=== PATIENT | female | born 1980 | race Caucasian/White ===

== ENCOUNTER 2024-04-26 13:47 | Inpatient (IN) | payer BC, OTHER ==
[2024-04-26] VITALS (8 sets, daily range): BP systolic 100–123; BP diastolic 53–84; PULSE 80–108; RESP 7–21; TEMP 97.9–101.1; O2SAT 93–100
[~2024-04-26] VITALS: Ht 160 cm; Wt 198.0 kg
[~2024-04-26 13:47] MED LIST: CYCL-1 PO
[2024-04-26 14:37] LABS: BILIRUBIN,URINE NEGATIVE (Neg); CLARITY,URINE SLIGHTLY CLOUDY (Clear); COLOR,URINE YELLOW (Yellow); GLUCOSE, URINE NEGATIVE (Neg); KETONES,URINE 40 mg/dl (Neg); LEUKOCYTE ESTERASE ,URINE MODERATE (Neg); NITRITES, URINE POSITIVE (Neg); OCCULT BLOOD,URINE SMALL (Neg); PROTEIN,URINE TRACE mg/dl (Neg); UROBILINOGEN,URINE 0.2 E.U/dL (0.2-1.0)
[2024-04-26 14:45] LABS: UA COLLECTION TYPE CLN CATCH MIDSTREAM
[2024-04-26 14:47] LABS: BACTERIA,URINE 4+ /HPF (Neg); SQUAMOUS EPITHELIAL CELL,UR MODERATE /LPF (FEW); WBC,URINE TNTC /HPF (0-4)
[2024-04-26 14:51] LABS: HEMOGLOBIN 13.1 g/dl (12.0-16.0); LYMPHOCYTES # (AUTO) 1.1 X10'3 (1.1-4.8); MEAN CORPUSCULAR VOLUME 87.1 FL (78-98); MEAN PLATELET VOLUME 7.5 FL (7.4-10.4); MONOCYTES # (AUTO) 0.9 X10'3 (0-0.9)
[2024-04-26 14:52] LABS: BASOPHILS # (AUTO) 0.1 X10'3 (0-0.2); BASOPHILS % (AUTO) 0.4 % (0-1); EOSINOPHILS % (AUTO) 0.1 % (0-6); HEMATOCRIT 39.1 % (35.0-45.0); LYMPHOCYTES % (AUTO) 7.4 % (21-51); MEAN CORPUSCULAR HEMOGLOBIN 29.2 PG (27.0-31.0); MEAN CORPUSCULAR HGB CONC 33.5 g/dL (33.0-36.5); NEUTROPHILS # (AUTO) 12.9 X10'3 (1.8-7.7); NEUTROPHILS % (AUTO) 86.1 % (42-75); PLATELET COUNT 326 X10'3 (140-440); RED BLOOD COUNT 4.49 X10'6 (4.20-5.60); RED CELL DISTRIBUTION WIDTH 13.2 % (11.5-14.5)
[2024-04-26 14:59] LABS: ALANINE AMINOTRANSFERASE 151 U/L (12-78); ALBUMIN 3.2 G/DL (3.4-5.0); ALBUMIN/GLOBULIN RATIO 0.8 (1.1-1.5); ALKALINE PHOSPHATASE 138 IU/L (46-116); ANION GAP 14 (8-16); ASPARTATE AMINO TRANSFERASE 114 U/L (10-37); BLOOD UREA NITROGEN 10 MG/DL (7-18); BUN/CREATININE RATIO 9.2 (10.0-20.0); CALCIUM 8.5 MG/DL (8.5-10.1); CHLORIDE 96 MMOL/L (99-107); CREATININE 1.09 MG/DL (0.40-0.90); GLUCOSE 123 MG/DL (70-104); LIPASE 39 U/L (16-77); POTASSIUM 3.5 MMOL/L (3.5-5.1); SODIUM 132 MMOL/L (135-145); TOTAL CARBON DIOXIDE 21.8 MMOL/L (24-32); TOTAL PROTEIN 7.2 G/DL (6.4-8.2); eCRCL 54 ML/MIN; eGFR 54 ML/MIN
[2024-04-26 16:23] LABS: HCG SERUM QL NEGATIVE
[2024-04-26] MEDS ORDERED: cefTAZidime 1 GM/NS 100ML IVPB 100 ML IV STA (16:29)
[2024-04-26] MEDS: CefTRIAXone/D5W-Rocephin 1gm 50 ML IV ONE (17:16)
[2024-04-26] MEDS: ketorolac trometh 15mg/ml vial 15 MG/ML ML IV ONE (17:17)
[2024-04-26] MEDS: ondansetron/PF 4mg/2ml inj IV ONE (17:17)
[2024-04-26] MEDS: normal saline 1000ml 1,000 ML IV ONE (17:17)
[2024-04-26] MEDS: piperacillin/tazo 4.5gm/100ml 100 ML IV STA (17:40)
[2024-04-26 17:57] LABS: C-REACTIVE PROTEIN 5.46 MG/DL (0.0-0.5)
[2024-04-26] MEDS ORDERED: mag hydrox/Alum hydrox/simeth 30ml oral suspension PO PRN (18:25)
[2024-04-26] MEDS ORDERED: potassium Cl 20 mEq SR tablet PO PRN (18:25)
[2024-04-26] MEDS ORDERED: ondansetron/PF 4mg/2ml inj IV PRN ×2 (18:25→18:40)
[2024-04-26] MEDS ORDERED: potassium Cl 40MEQ/1/2NS 520ml 520 ML IV PRN (18:25)
[2024-04-26] MEDS ORDERED: morphine 2 MG/ML inj. syringe IV PRN ×2 (18:25→18:40)
[2024-04-26] MEDS ORDERED: magnesium hydroxide 30ml (MOM) UD suspension PO PRN (18:25)
[2024-04-26] MEDS ORDERED: magnesium sulf-water 2g/50mL 50 ML IV PRN (18:25)
[2024-04-26] MEDS: normal saline 1000ml 1,000 ML IV SCH (18:25)
[2024-04-26] MEDS ORDERED: magnesium sulf-water 4G/100mL 100 ML IV PRN (18:25)
[2024-04-26] MEDS ORDERED: enalaprilat dihydrate 2.5mg/2ml vial IV PRN (18:40)
[2024-04-26] MEDS ORDERED: sevoflurane 250ml liquid IH ONE (18:40)
[2024-04-26] MEDS ORDERED: proCHLORperazine 10 MG/2 ml inj IV PRN (18:40)
[2024-04-26] MEDS ORDERED: meperidine/PF 25mg/ml syringe IV PRN ×2 (18:40)
[2024-04-26] MEDS ORDERED: labetalol 20mg/4ml (5mg/ml) syringe IV PRN (18:40)
[2024-04-26] MEDS ORDERED: morphine 4 MG/ML inj SYRINge IV PRN (18:40)
[2024-04-26] MEDS ORDERED: ringers solution, lacted 1,000 ML IV SCH (18:40)
[2024-04-26] MEDS ORDERED: fentaNYL/PF 50MCG/1 ML 2ML syringe ONE (18:49)
[2024-04-26] MEDS ORDERED: midazolam 1 mg/ML 2ml injection ONE (18:50)
[2024-04-26] MEDS ORDERED: LIDOcaine 2% (20mg/ml) 5ml vial ONE (18:51)
[2024-04-26] MEDS ORDERED: propofol inj 20 ML IV ONE (18:51)
[2024-04-26] MEDS ORDERED: ondansetron/PF 4mg/2ml inj ONE (19:16)
[2024-04-26] MEDS: iohexol 300 MG/1 ML 50ml polymer ONE (19:27)
[2024-04-26] MEDS: K and/or MAG REPLACEMENT MC SCH (20:00)
[2024-04-26] MEDS: meperidine/PF 25mg/ml syringe IV PRN (20:23)
[2024-04-26] MEDS: morphine 2 MG/ML inj. syringe IV PRN (21:45)
[2024-04-26] MEDS: tamsulosin 0.4mg capsule PO SCH (22:43)
[2024-04-26] MEDS: docusate sod 100mg capsule PO SCH (22:43)
[2024-04-27] VITALS (7 sets, daily range): BP systolic 93–99; BP diastolic 50–55; PULSE 85–88; RESP 14–18; TEMP 97.9–99.7; O2SAT 93–97
[2024-04-27] MEDS: piperacillin/tazo 3.375gm/50ml 50 ML IV SCH (00:04)
[2024-04-27] MEDS ORDERED: FLUO-167 PO (00:43)
[2024-04-27] MEDS ORDERED: ARIP2TAB67 PO (00:43)
[2024-04-27] MEDS ORDERED: ATOR40TA72 PO (00:43)
[2024-04-27] MEDS ORDERED: HYDR-3927 PO (00:43)
[2024-04-27] MEDS ORDERED: GABA300T28 PO (00:43)
[2024-04-27] MEDS ORDERED: LEVO100T9 PO (00:43)
[2024-04-27] MEDS ORDERED: GUAN1TAB28 PO (00:43)
[2024-04-27] MEDS ORDERED: ATI1T PO (00:43)
[2024-04-27] MEDS ORDERED: LEMB10TA PO (00:43)
[2024-04-27] MEDS ORDERED: LEVO175T7 PO (00:43)
[2024-04-27] MEDS ORDERED: ONDA-103 PO (00:43)
[2024-04-27] MEDS: temazepam 15mg capsule PO ONE (00:53)
[2024-04-27] MEDS: ketorolac trometh 15mg/ml vial 15 MG/ML ML IV PRN (00:54)
[2024-04-27] MEDS ORDERED: HYDROXYZINE PAMOATE 25 MG PO PRN ×2 (01:10→01:44)
[2024-04-27] MEDS: phenazopyridine 100mg tablet PO PRN (02:03)
[2024-04-27] MEDS: acetaminophen 325mg tablet PO PRN (02:07)
[2024-04-27 06:31] LABS: BASOPHILS % (AUTO) 0.2 % (0-1); EOSINOPHILS % (AUTO) 0.1 % (0-6); HEMATOCRIT 34.8 % (35.0-45.0); HEMOGLOBIN 11.7 g/dl (12.0-16.0); LYMPHOCYTES # (AUTO) 1.2 X10'3 (1.1-4.8); LYMPHOCYTES % (AUTO) 9.1 % (21-51); MEAN CORPUSCULAR HGB CONC 33.6 g/dL (33.0-36.5); MEAN CORPUSCULAR VOLUME 86.3 FL (78-98); MEAN PLATELET VOLUME 7.7 FL (7.4-10.4); MONOCYTES % (AUTO) 7.4 % (2-12); NEUTROPHILS # (AUTO) 10.8 X10'3 (1.8-7.7); NEUTROPHILS % (AUTO) 83.2 % (42-75); PLATELET COUNT 255 X10'3 (140-440); RED BLOOD COUNT 4.03 X10'6 (4.20-5.60); RED CELL DISTRIBUTION WIDTH 12.9 % (11.5-14.5); WHITE BLOOD COUNT 12.9 X10'3 (4.5-11.0)
[2024-04-27 06:53] LABS: ALANINE AMINOTRANSFERASE 135 U/L (12-78); ALBUMIN 2.5 G/DL (3.4-5.0); ALBUMIN/GLOBULIN RATIO 0.7 (1.1-1.5); ALKALINE PHOSPHATASE 109 IU/L (46-116); ANION GAP 9 (8-16); ASPARTATE AMINO TRANSFERASE 94 U/L (10-37); BILIRUBIN,TOTAL 0.8 MG/DL (0.1-1.0); BLOOD UREA NITROGEN 8 MG/DL (7-18); BUN/CREATININE RATIO 8.4 (10.0-20.0); CALCIUM 8.2 MG/DL (8.5-10.1); CHLORIDE 102 MMOL/L (99-107); CREATININE 0.95 MG/DL (0.40-0.90); GLUCOSE 100 MG/DL (70-104); MAGNESIUM 1.4 MG/DL (1.5-2.4); OSMOLALITY 273 MOSM/K (280-300); POTASSIUM 3.3 MMOL/L (3.5-5.1); SODIUM 134 MMOL/L (135-145); THYROID STIMULATING HORMONE 0.01 ulU/ml (0.34-4.50); TOTAL PROTEIN 5.9 G/DL (6.4-8.2); eCRCL 62 ML/MIN; eGFR 64 ML/MIN
[2024-04-27] MEDS: LORazepam 1 MG tablet PO SCH (07:11)
[2024-04-27] MEDS: atorvastatin 20mg tablet PO SCH (07:12)
[2024-04-27] MEDS: aripiprazole 2MG tablet PO SCH (07:12)
[2024-04-27] MEDS: FLUoxetine 20mg capsule PO SCH (07:12)
[2024-04-27] MEDS: levoTHYROXINE 100mcg tablet PO SCH (07:13)
[2024-04-27] MEDS: LEMBOREXANT 10 MG PO SCH (07:14)
[2024-04-27 07:20] LABS: HEMOGLOBIN A1C 5.2 % (4.5-6.2)
[2024-04-27] MEDS: magnesium Cl slow-release 64mg tablet PO PRN (07:31)
[2024-04-27] MEDS: potassium Cl 20 mEq SR tablet PO PRN (07:32)
[2024-04-27 10:12] LABS: CHOLESTEROL 82 MG/DL (0-200); FREE T4 (FREE THYROXINE) 1.88 NG/DL (0.73-1.40); HDL CHOLESTEROL 41 MG/DL (35-60); LDL CHOLESTEROL 32 MG/DL (50-100); TRIGLYCERIDES 78 MG/DL (20-135)
[2024-04-27] MEDS: HYDROcodone/acetaminophen 5mg/325mg tablet PO PRN (13:06)
[2024-04-27] MEDS: ondansetron 4mg rapidly disintigrating tab PO PRN (13:08)
[2024-04-27] MEDS: gabapentin 300mg capsule PO SCH (20:48)
[2024-04-27] MEDS: LORazepam 0.5 MG tablet PO SCH (20:49)
[2024-04-28 06:38] LABS: BASOPHILS % (AUTO) 0.3 % (0-1); EOSINOPHILS % (AUTO) 0.4 % (0-6); HEMATOCRIT 31.7 % (35.0-45.0); HEMOGLOBIN 10.6 g/dl (12.0-16.0); LYMPHOCYTES # (AUTO) 1.7 X10'3 (1.1-4.8); LYMPHOCYTES % (AUTO) 13.5 % (21-51); MEAN CORPUSCULAR HEMOGLOBIN 28.9 PG (27.0-31.0); MEAN CORPUSCULAR HGB CONC 33.4 g/dL (33.0-36.5); MEAN CORPUSCULAR VOLUME 86.6 FL (78-98); MEAN PLATELET VOLUME 7.7 FL (7.4-10.4); MONOCYTES # (AUTO) 1.3 X10'3 (0-0.9); MONOCYTES % (AUTO) 9.9 % (2-12); NEUTROPHILS # (AUTO) 9.6 X10'3 (1.8-7.7); NEUTROPHILS % (AUTO) 75.9 % (42-75); PLATELET COUNT 222 X10'3 (140-440); RED BLOOD COUNT 3.66 X10'6 (4.20-5.60); RED CELL DISTRIBUTION WIDTH 13.3 % (11.5-14.5); WHITE BLOOD COUNT 12.7 X10'3 (4.5-11.0)
[2024-04-28 06:46] LABS: ALANINE AMINOTRANSFERASE 175 U/L (12-78); ALBUMIN 2.2 G/DL (3.4-5.0); ALBUMIN/GLOBULIN RATIO 0.6 (1.1-1.5); ALKALINE PHOSPHATASE 120 IU/L (46-116); ANION GAP 7 (8-16); ASPARTATE AMINO TRANSFERASE 131 U/L (10-37); BILIRUBIN,TOTAL 0.4 MG/DL (0.1-1.0); BLOOD UREA NITROGEN 5 MG/DL (7-18); CHLORIDE 109 MMOL/L (99-107); CREATININE 0.84 MG/DL (0.40-0.90); GLUCOSE 104 MG/DL (70-104); MAGNESIUM 1.7 MG/DL (1.5-2.4); POTASSIUM 3.7 MMOL/L (3.5-5.1); SODIUM 137 MMOL/L (135-145); TOTAL CARBON DIOXIDE 21.4 MMOL/L (24-32); TOTAL PROTEIN 5.7 G/DL (6.4-8.2); eCRCL 70 ML/MIN; eGFR 73 ML/MIN
[2024-04-28 08:00] VITALS: BP 110/65; PULSE 79; RESP 16; TEMP 98.2; O2SAT 94
[2024-04-28] MEDS: CefTRIAXone/D5W-Rocephin 1gm 50 ML IV SCH (08:06)
[2024-04-28] MEDS: levoTHYROXINE 75mcg tablet PO SCH (08:06)
[2024-04-28 08:45] VITALS: RESP 16; O2SAT 94
[2024-04-28 11:00] VITALS: BP 97/58; PULSE 85; RESP 16; TEMP 98.1; O2SAT 95
[2024-04-28 11:04] VITALS: BP 94/56; PULSE 86; RESP 16; TEMP 98; O2SAT 95
[2024-04-28 11:15] LABS: HBSAG SCREEN Negative (Negative); HEP A AB, IGM Negative (Negative); HEP B CORE AB, IGM Negative (Negative); HEP B SURF AB Reactive (.); HEPATITIS C VIRUS ANTIBODY Non Reactive (Non Reactive)
[2024-04-28] MEDS ORDERED: ACET-1008 PO (12:09)
[2024-04-28] MEDS ORDERED: CEFD300C3 PO (12:11)
[2024-04-28] MEDS ORDERED: LACT1CAP26 PO (12:11)
[2024-04-28] MEDS ORDERED: LEVO75TA7 PO (12:21)
[2024-04-28] MEDS ORDERED: PHEN-786 PO (13:13)
== END 2024-04-28 14:10 | disposition home or self-care (01) | DRG 660 ==
LOC: ER 13:47 → ED HOLD 18:24 → ORTHO 4S 20:50
PROVIDERS: ADMIT Family Medicine; ATTEND Family Medicine
PROC: 0T768DZ Dilation of Right Ureter with Intraluminal Device, Via Natural or Artificial Opening Endoscopic (ICD-10-PCS; principal; 2024-04-28)
PROC: BT1D1ZZ Fluoroscopy of Right Kidney, Ureter and Bladder using Low Osmolar Contrast (ICD-10-PCS; 2024-04-28)
DX: N13.6 Pyonephrosis (principal); E87.1 Hypo-osmolality and hyponatremia; Z68.45 Body mass index [BMI] 70 or greater, adult; G89.29 Other chronic pain; R73.9 Hyperglycemia, unspecified; E03.9 Hypothyroidism, unspecified; M54.89 Other dorsalgia; N13.9 Obstructive and reflux uropathy, unspecified; F32.A Depression, unspecified; E66.9 Obesity, unspecified; F41.9 Anxiety disorder, unspecified; K75.9 Inflammatory liver disease, unspecified; N17.9 Acute kidney failure, unspecified; Z98.84 Bariatric surgery status
CPT/HCPCS: 96365; 96367; 96375; 99285; Z7506; 36415; 74176; 74420; 76700; 80053; 80061; 81001; 83036; 83605; 83690; 83735; 83930; 84145; 84439; 84443; 84480; 84703; 85025; 86140; 86705; 86706; 86709; 86803; 87040; 87077; 87081; 87088; 87186; 87340; 87522; 93005; A4618; C1758; C1769; C2617; G0378; J0696; J1885; J2175; J2250; J2270; J2405; J2543; J2704; J3010; J3490; J7030; J7120; Q9967

== ENCOUNTER 2024-05-06 16:43 | Inpatient (IN) | payer BC ==
[~2024-05-06] VITALS: Ht 160 cm; Wt 87.3 kg
[~2024-05-06 16:43] MED LIST changes: +ACET-1008 PO; +ARIP2TAB67 PO; +ATI1T PO; +ATOR40TA72 PO; +CEFD300C3 PO; -CYCL-1 PO; +FLUO-167 PO; +GABA300T28 PO; +GUAN1TAB28 PO; +HYDR-3927 PO; +LACT1CAP26 PO; +LEMB10TA PO; +LEVO100T9 PO; +LEVO75TA7 PO; +ONDA-103 PO; +PHEN-786 PO
[2024-05-06 17:02] LABS: BILIRUBIN,URINE NEGATIVE (Neg); CLARITY,URINE CLOUDY (Clear); COLOR,URINE YELLOW (Yellow); GLUCOSE, URINE NEGATIVE (Neg); KETONES,URINE TRACE mg/dl (Neg); LEUKOCYTE ESTERASE ,URINE TRACE (Neg); NITRITES, URINE POSITIVE (Neg); OCCULT BLOOD,URINE LARGE (Neg); PROTEIN,URINE >=300 mg/dl (Neg)
[2024-05-06 17:05] LABS: UA COLLECTION TYPE CLN CATCH MIDSTREAM
[2024-05-06 17:18] LABS: SQUAMOUS EPITHELIAL CELL,UR MODERATE /LPF (FEW)
[2024-05-06 17:19] LABS: RBC,URINE TNTC /HPF (0-2)
[2024-05-06 17:21] LABS: BACTERIA,URINE 2+ /HPF (Neg); WBC,URINE 30-50 /HPF (0-4)
[2024-05-06 17:46] LABS: BASOPHILS # (AUTO) 0.1 X10'3 (0-0.2); BASOPHILS % (AUTO) 0.5 % (0-1); EOSINOPHILS # (AUTO) 0.2 X10'3 (0-0.9); EOSINOPHILS % (AUTO) 1.4 % (0-6); HEMATOCRIT 43.3 % (35.0-45.0); HEMOGLOBIN 14.3 g/dl (12.0-16.0); LYMPHOCYTES # (AUTO) 1.6 X10'3 (1.1-4.8); LYMPHOCYTES % (AUTO) 10.7 % (21-51); MEAN CORPUSCULAR HEMOGLOBIN 28.7 PG (27.0-31.0); MEAN CORPUSCULAR HGB CONC 32.9 g/dL (33.0-36.5); MEAN CORPUSCULAR VOLUME 87.2 FL (78-98); MEAN PLATELET VOLUME 6.8 FL (7.4-10.4); MONOCYTES # (AUTO) 0.9 X10'3 (0-0.9); MONOCYTES % (AUTO) 6.1 % (2-12); NEUTROPHILS # (AUTO) 11.9 X10'3 (1.8-7.7); NEUTROPHILS % (AUTO) 81.3 % (42-75); PLATELET COUNT 660 X10'3 (140-440); RED BLOOD COUNT 4.96 X10'6 (4.20-5.60); RED CELL DISTRIBUTION WIDTH 13.7 % (11.5-14.5); WHITE BLOOD COUNT 14.7 X10'3 (4.5-11.0)
[2024-05-06 17:56] LABS: ALANINE AMINOTRANSFERASE 120 U/L (12-78); ALBUMIN 3.6 G/DL (3.4-5.0); ALBUMIN/GLOBULIN RATIO 0.8 (1.1-1.5); ALKALINE PHOSPHATASE 151 IU/L (46-116); ANION GAP 9 (8-16); ASPARTATE AMINO TRANSFERASE 57 U/L (10-37); BILIRUBIN,TOTAL 0.5 MG/DL (0.1-1.0); BLOOD UREA NITROGEN 11 MG/DL (7-18); BUN/CREATININE RATIO 11.5 (10.0-20.0); CALCIUM 9.2 MG/DL (8.5-10.1); CHLORIDE 103 MMOL/L (99-107); CREATININE 0.96 MG/DL (0.40-0.90); GLUCOSE 120 MG/DL (70-104); LIPASE 74 U/L (16-77); POTASSIUM 3.9 MMOL/L (3.5-5.1); SODIUM 137 MMOL/L (135-145); TOTAL CARBON DIOXIDE 25.4 MMOL/L (24-32); eCRCL 61 ML/MIN; eGFR 63 ML/MIN
[2024-05-06] MEDS: normal saline 1000ML IV soln IVB ONE (18:40)
[2024-05-06] MEDS: CefTRIAXone 2gm/D5W 50ml BAG 50 ML IV SCH (18:40)
[2024-05-06] MEDS ORDERED: potassium Cl 40MEQ/1/2NS 520ml 520 ML IV PRN (19:25)
[2024-05-06] MEDS ORDERED: HYDROmorphone inj. 0.5 MG/0.5 ML DISP.SYRIN IV PRN (19:25)
[2024-05-06] MEDS ORDERED: ondansetron/PF 4mg/2ml inj IV PRN (19:25)
[2024-05-06] MEDS ORDERED: HYDROcodone/acetaminophen 5mg/325mg tablet PO PRN (19:25)
[2024-05-06] MEDS ORDERED: acetaminophen 325mg tablet PO PRN (19:25)
[2024-05-06] MEDS: ondansetron/PF 4mg/2ml inj IV ONE (19:40)
[2024-05-06] MEDS: morphine 4 MG/ML inj SYRINge IV ONE (19:43)
[2024-05-06] MEDS: K and/or MAG REPLACEMENT MC SCH (20:00)
[2024-05-06] MEDS: heparin, porcine 5000 units/ml vial SQ SCH (20:00)
[2024-05-06] MEDS: ketorolac trometh 15mg/ml vial 15 MG/ML ML IV ONE (20:16)
[2024-05-06] MEDS: normal saline 1000ml 1,000 ML IV SCH (20:17)
[2024-05-06 20:33] LABS: URINE HCG NEGATIVE (NEG)
[2024-05-06] MEDS ORDERED: aripiprazole 2MG tablet PO SCH (20:40)
[2024-05-06] MEDS: FLUoxetine 20mg capsule PO SCH (20:40)
[2024-05-06 21:03] LABS: THYROID STIMULATING HORMONE 0.39 ulU/ml (0.34-4.50)
[2024-05-06] MEDS: aripiprazole 2MG tablet PO SCH (21:59)
[2024-05-07] MEDS: piperacillin/tazo 3.375gm/50ml 50 ML IV SCH (00:52)
[2024-05-07 07:15] VITALS: BP 123/86; PULSE 66; RESP 16; TEMP 97.4; O2SAT 97
[2024-05-07] MEDS: LEMBOREXANT 10 MG PO SCH (08:00)
[2024-05-07 08:02] LABS: BASOPHILS # (AUTO) 0.1 X10'3 (0-0.2); BASOPHILS % (AUTO) 0.4 % (0-1); EOSINOPHILS # (AUTO) 0.3 X10'3 (0-0.9); EOSINOPHILS % (AUTO) 2.6 % (0-6); HEMATOCRIT 38.5 % (35.0-45.0); HEMOGLOBIN 12.3 g/dl (12.0-16.0); LYMPHOCYTES # (AUTO) 1.7 X10'3 (1.1-4.8); LYMPHOCYTES % (AUTO) 14.1 % (21-51); MEAN CORPUSCULAR HEMOGLOBIN 28.1 PG (27.0-31.0); MEAN CORPUSCULAR VOLUME 87.6 FL (78-98); MEAN PLATELET VOLUME 6.9 FL (7.4-10.4); MONOCYTES # (AUTO) 0.6 X10'3 (0-0.9); NEUTROPHILS # (AUTO) 9.6 X10'3 (1.8-7.7); NEUTROPHILS % (AUTO) 77.9 % (42-75); PLATELET COUNT 558 X10'3 (140-440); RED BLOOD COUNT 4.39 X10'6 (4.20-5.60); WHITE BLOOD COUNT 12.3 X10'3 (4.5-11.0)
[2024-05-07 08:12] LABS: ANION GAP 8 (8-16); BLOOD UREA NITROGEN 10 MG/DL (7-18); BUN/CREATININE RATIO 11.9 (10.0-20.0); CALCIUM 8.6 MG/DL (8.5-10.1); CHLORIDE 107 MMOL/L (99-107); CREATININE 0.84 MG/DL (0.40-0.90); GLUCOSE 96 MG/DL (70-104); POTASSIUM 3.6 MMOL/L (3.5-5.1); SODIUM 139 MMOL/L (135-145); TOTAL CARBON DIOXIDE 24.2 MMOL/L (24-32); eCRCL 70 ML/MIN; eGFR 73 ML/MIN
[2024-05-07] MEDS: atorvastatin 20mg tablet PO SCH (08:41)
[2024-05-07] MEDS: gabapentin 300mg capsule PO SCH (08:41)
[2024-05-07] MEDS: levoTHYROXINE 100mcg tablet PO SCH (08:42)
[2024-05-07] MEDS: LORazepam 1 MG tablet PO SCH (08:42)
[2024-05-07] MEDS ORDERED: CIPR-202 PO (13:29)
== END 2024-05-07 14:40 | disposition home or self-care (01) | DRG 690 ==
LOC: ER 16:44 → ED HOLD 19:28 → ORTHO 4S 05-07 07:05
PROVIDERS: ADMIT Student in an Organized Health Care Education/Training Program; ATTEND Nurse Practitioner Family
DX: N13.6 Pyonephrosis (principal); F32.A Depression, unspecified; F41.9 Anxiety disorder, unspecified; E03.9 Hypothyroidism, unspecified; G89.29 Other chronic pain; M54.9 Dorsalgia, unspecified; Z87.442 Personal history of urinary calculi; Z79.899 Other long term (current) drug therapy
CPT/HCPCS: 36415; 74176; 80048; 80053; 81001; 81025; 83605; 83690; 84145; 84443; 85025; 87040; 87081; 87088; 96365; 99285; A6258; G0378; J0696; J1885; J2270; J2405; J2543; J7030

== ENCOUNTER 2025-02-25 16:13 | Emergency (ER) | payer BC ==
[~2025-02-25] VITALS: Ht 160 cm; Wt 91.6 kg
[~2025-02-25 16:13] MED LIST changes: -CEFD300C3 PO
[2025-02-25 18:14] LABS: MEAN PLATELET VOLUME 7.5 FL (7.4-10.4); RED CELL DISTRIBUTION WIDTH 14.0 % (11.5-14.5)
[2025-02-25 18:38] LABS: CREATININE 1.29 MG/DL (0.40-0.90); TOTAL CARBON DIOXIDE 23.6 MMOL/L (24-32); eCRCL 45 ML/MIN; eGFR 44 ML/MIN
== END 2025-02-25 19:44 | disposition left against medical advice (07) ==
LOC: ER 16:13
DX: R10.9 Unspecified abdominal pain (principal); Z53.21 Procedure and treatment not carried out due to patient leaving prior to being seen by health care provider
CPT/HCPCS: 36415; 80053; 83690; 85025